=== PATIENT | male | born 1955 | race Caucasian/White ===

== ENCOUNTER 2022-03-23 10:38 | Emergency (ER) | payer MEDICARE, BC, SELFPAY ==
[2022-03-23] VITALS (12 sets, daily range): BP systolic 96–115; BP diastolic 60–71; PULSE 75–98; RESP 20; TEMP 36–36.6; O2SAT 93–98; BMI 25.0
--- NOTE | 2022-03-23 11:24 | CRLHL7_ITS ---
For Patients: As a result of the Cures Act, medical imaging exams and procedure reports are released immediately into your electronic medical record. You may view this report before your referring provider. If you have questions, please contact your health care provider. INDICATION: Fall TECHNIQUE: PA chest and left ribs. FINDINGS: The lungs are clear. There is no evidence of pulmonary contusion, pneumothorax or pleural effusion. The heart and pulmonary vessels are of normal size. Oblique detail views of the ribs demonstrate no evidence of fracture or intrinsic bone lesion. There is no evidence of pleural hematoma. IMPRESSION: Negative chest and left ribs. Dictated by Nichelle Choi MD @ 03/23/2022 12:14:22 PM (Electronically Signed)
--- NOTE | 2022-03-23 11:26 | CRLHL7_ITS ---
For Patients: As a result of the Century Cures Act, medical imaging exams and procedure reports are released immediately into your electronic medical record. You may view this report before your referring provider. If you have questions, please contact your health care provider. INDICATION: Fall, syncope TECHNIQUE: Noncontrast axial CT of the head. Coronal and sagittal reformats. Bone and soft tissue algorithms. COMPARISON: No relevant comparison studies available at this institution. FINDINGS: The ventricles and cortical sulci are slightly prominent. No midline shift or mass effect. No acute intracranial hemorrhage or extra-axial fluid collection. Small encephalomalacia defects are noted within the left posterior paramedian parieto-occipital lobes and left cerebellum. Jones-white matter differentiation is otherwise grossly maintained. Minimal periventricular white matter hypoattenuation. Intracranial vessels are unremarkable for technique. Midline structures are unremarkable. Bony calvarium appears grossly intact. Sequela of remote functional endoscopic sinus surgery, with moderate circumferential mucoperiosteal thickening throughout the paranasal sinuses, with opacified right sphenoid sinus, bubbly retained secretions in the left sphenoid sinus, and partially opacified right frontal sinus with large frontal air cell. Orbits are unremarkable. IMPRESSION: 1. No skull fracture or evidence of acute intracranial hemorrhage. 2. Small foci of encephalomalacia within the left posterior paramedian parieto-occipital lobes and left cerebellum. 3. Sinus surgery changes, with moderate diffuse paranasal sinus mucoperiosteal thickening as detailed. Please note that all CT scans at this facility use dose modulation, iterative reconstruction, and/or weight-based dosing when appropriate to reduce radiation dose to as low as reasonably achievable. Dictated by Haritha Coates MD @ 03/23/2022 12:17:03 PM (Electronically Signed)
[2022-03-23 11:50] LABS: Lactate* 1.1 mmol/L (0.5-1.9)
[2022-03-23 11:57] LABS: Basophils Percent Auto 0.1 % (0.0-3.0); Hematocrit 42.6 % (37.0-53.0); Hemoglobin* 14.4 gm/dL (13.5-17.5); Immature Granulocytes Pct Auto 0.2 %; Lymphocytes Percent Auto 3.6 % (20-44); Mean Corpuscular HGB Conc 34 gm/dL (32-36); Mean Corpuscular Hemoglobin 33 pg (26-34); Mean Corpuscular Volume 97 fL (80-100); Monocytes Percent Auto 8.8 % (0.0-11.0); Neutrophils Percent Auto 87.3 % (42.0-72.0); Platelet Count* 269 K/uL (140-440); RDW Coefficient of Variation % 11.8 % (11.5-15.5); Red Blood Count 4.39 m/uL (4.30-5.90); White Blood Count* 14.58 K/uL (4.50-11.00)
[2022-03-23] MEDS: 0.9 % SODIUM CHLORIDE 1000 ml 1,000 ML IV ×2 (12:03→12:30)
--- NOTE | 2022-03-23 12:06 | ED.GENADULT ---
HPI - General Adult General Chief complaint: Syncope/Fainted Stated complaint: Snycope Time Seen by Provider: 03/23/22 11:05 Source: patient and family Mode of arrival: ambulatory Limitations: no limitations History of Present Illness HPI narrative: 67 year male presenting to the ER today after being sent over from the Urgent Care for syncopal episode. Patient has been ill since Friday with fevers, chills, decreased appetite, achiness. Today he got up in the morning was walking around in all of a sudden found himself face down on the ground. Unclear of how long he was unconscious for. He was able to get up by himself. He denies any vomiting, confusion or neurologic deficits. He is not on any blood thinners. He does not vape or smoke. He was seen in the urgent care earlier today and tested negative for influenza. No other testing was done. He denies any chest pain or shortness of breath. He has been coughing. Cough is often productive of clear sputum. He denies any diarrhea. He is complaining of pain in the posterior ribcage on the left. Of note, patient states he does have a history of hematuria. Related Data Home Medications Medication Instructions Recorded Confirmed celecoxib 100 mg capsule 100 mg PO BID 03/23/22 03/23/22 Allergies Allergy/AdvReac Type Severity Reaction Status Date / Time Penicillins Allergy Intermediate Rash Verified 03/23/22 11:09 Review of Systems Status of ROS: Reports: 10 or more systems reviewed and unremarkable except as noted in History and below PFSH PFS Social History Smoking Status: Former smoker Do you use any of these nicotine containing products: None Second hand tobacco smoke exposure: No How often do you have a drink containing alcohol: 4 or more times a week How many standard drinks containing alcohol do you have on a typical day: 1 or 2 How often do you have six or more drinks on one occasion: Weekly AUDIT-C Alcohol total score: 7 Non-prescribed substance use: denies use service: No Exam Narrative: Exam Narrative: Well-nourished well-developed patient in no acute distress, does appear sick. He appears tired, he is warm and diaphoretic. Alert and oriented. Answers questions appropriately. Mood and affect are appropriate. Thoughts are goal oriented and rational. No tangential or magical thinking noted. Patient speaks in full sentences without needing to catch his breath. Speech is not slurred or pressured. HEENT: Normocephalic atraumatic. Pupils are equally round reactive to light. Extraocular muscles are intact. Conjunctivae are moist without any icterus noted. Moist mucous membranes. Posterior pharynx is normal. Neck is soft without any lymphadenopathy or thyromegaly. No masses are appreciated. Cardiovascular: Heart is regular rate and rhythm, heart sounds are a bit distant. Lungs: Clear to auscultation bilaterally no wheezes rhonchi or rales are appreciated. Patient takes deep breaths without any discomfort. I cannot reproduce his pain on palpation of the chest wall. His back is normal appearance, there is no bruising, swelling, or erythema noted. Abdomen: Soft and nontender nondistended with normal bowel sounds. No guarding or rebound. No masses or organomegaly appreciated. Extremities: Bilateral lower extremities are without edema. Normal DP and PT pulses. Skin: Well perfused without any obvious rashes. Back: He has no tenderness to palpation of the cervical, thoracic or lumbar spine. He has no tenderness with full range of motion at the neck. Const: Vital Signs, click to edit/add: Vital Signs - 24 hr 03/23/22 11:10 03/23/22 12:06 03/23/22 12:07 Temperature 96.8 F L Pulse Rate 84 84 Pulse Rate [Femora l] 98 Respiratory Rate 20 Blood Pressure 96/60 Blood Pressure [Le ft Upper Arm] 108/71 Pulse Oximetry 94 95 94 Oxygen Delivery Me thod Room Air 03/23/22 13:15 Temperature 97.9 F Pulse Rate Pulse Rate [Femora l] Respiratory Rate Blood Pressure Blood Pressure [Le ft Upper Arm] Pulse Oximetry Oxygen Delivery Me thod Course Course Hospital Course: CBC did show slightly elevated white cell count, in CRP slightly elevated, RSV positive. UA did show hematuria-again, patient states that this is not new for him. Chest x-ray did not show any evidence of pneumonia or rib fractures. Head CT did not show any evidence of intracranial hemorrhage. While he was here patient received 2 L of normal saline. Will pressured go as low as 96/60 however remained mostly in the low 100s reaching 115 systolic. Patient states he has never had high blood pressure in the past but is unsure of what his baseline blood pressures are. He did feel significantly better after IV fluids. We discussed RSV infection in older adults causing symptoms that he is experiencing. We also discussed the possibility of a bacterial infection causing his symptoms-blood cultures pending at this time. Given that his blood pressures were slightly on the low side we did discuss the possibility of admission, patient states that he feels comfortable going home at this time does not feel that he needs admission given that he is feeling so much better after IV fluids. He understands that he will return promptly if he starts to feel worse. is in agreement with this plan. We Will call them in the event that blood cultures are positive. Although blood pressures were slightly low, patient did not meet criteria for sepsis. Vital Signs Vital signs: Initial Vital Signs Temperature 96.8 F L 03/23/22 11:10 Temperature Source Temporal Artery Scan 03/23/22 11:10 Pulse Rate 98 03/23/22 11:10 Pulse Rhythm 03/23/22 11:10 Respiratory Rate 20 03/23/22 11:10 Blood Pressure 108/71 03/23/22 11:10 Blood Pressure Mean 83 03/23/22 11:10 Blood Pressure Position Supine 03/23/22 11:10 Pulse Oximetry 94 03/23/22 11:10 Oxygen Delivery Method 03/23/22 11:10 Vital Signs Temperature 96.8 F L 03/23/22 11:10 Pulse Rate 98 03/23/22 11:10 Respiratory Rate 20 03/23/22 11:10 Blood Pressure 108/71 03/23/22 11:10 Pulse Oximetry 94 03/23/22 11:10 Oxygen Delivery Method 03/23/22 11:10 Temperature 97.9 F 03/23/22 13:15 Pulse Rate 84 03/23/22 12:07 Respiratory Rate 20 03/23/22 11:10 Blood Pressure 96/60 03/23/22 12:06 Pulse Oximetry 94 03/23/22 12:07 Oxygen Delivery Method 03/23/22 11:10 Medical Decision Making MDM Narrative Medical decision making narrative: RSV infection. Plan per above. Lab Data Lab results reviewed: Yes I reviewed the patient's lab results Labs: Lab Results 03/23/22 03/23/22 03/23/22 Range/Units 11:40 11:40 11:40 WBC 14.58 H (4.50-11.00) K/uL RBC 4.39 (4.30-5.90) m/uL Hgb 14.4 (13.5-17.5) gm/dL Hct 42.6 (37.0-53.0) % MCV 97 (80-100) fL MCH 33 (26-34) pg MCHC 34 (32-36) gm/dL RDW Coeff of Leeann 11.8 (11.5-15.5) % Plt Count 269 (140-440) K/uL Neut % (Auto) 87.3 H (42.0-72.0) % Lymph % (Auto) 3.6 L (20-44) % [place] % (Auto) 8.8 (0.0-11.0) % Eos % (Auto) 0.0 (0.0-7.0) % Baso % (Auto) 0.1 (0.0-3.0) % Neut # (Auto) 12.70 H (1.7-7.0) K/uL Lymph # (Auto) 0.50 L (0.90-2.90) K/uL [place] # (Auto) 1.30 H (0.00-0.90) K/UL Eos # (Auto) 0.00 (0.00-0.50) K/uL Baso # (Auto) 0.00 (0.00-0.30) K/uL Abs Immat Gran (auto) 0.00 (0.00-0.30) K/uL Imm/Tot Granulo (auto) 0.2 % Sodium 131 L (135-149) mmol/L Potassium 4.4 (3.6-5.1) mmol/L Chloride 97 (96-114) mmol/L Carbon Dioxide 28 (20-32) mmol/L BUN 20 (7-30) mg/dL Creatinine 1.1 (0.5-1.5) mg/dL Estimated Creat Clear 57.19 Estimated GFR 73 ml/min Glucose 201 H (60-115) mg/dL Lactate 1.1 (0.5-1.9) mmol/L Calcium 9.3 (8.4-10.6) mg/dL Total Bilirubin 0.7 (0.1-1.5) mg/dL Direct Bilirubin 0.1 (0.0-0.5) mg/dL AST 26 (12-35) U/L ALT 19 (4-50) U/L Alkaline Phosphatase 62 (40-150) U/L Troponin I < 0.01 L (0.01-0.04) ng/mL C-Reactive Protein 4.5 H (0.5-1.0) mg/dL Total Protein 7.4 (6.0-8.3) g/dL Albumin 4.3 (3.3-5.0) g/dL Urine Color (Yellow) Urine Appearance (Clear) Urine pH (5.0-8.5) Ur Specific [place] (1.000-1.030) Urine Protein (Negative) Urine Glucose (UA) (Negative) Urine Ketones (Negative) Urine Blood (Negative) Urine Nitrite (Negative) Urine Bilirubin (Negative) Urine Urobilinogen (0.2-1.0) Ur Leukocyte Esterase (Negative) Urine RBC (0-2) Urine WBC (0-5) Ur Squamous Epith Cells (None-Few) Urine Bacteria (None) RBC Casts (None) SARS-CoV-2 (PCR) (Negative) Influenza Type A (PCR) (Negative) Influenza Type B (PCR) (Negative) 03/23/22 03/23/22 Range/Units 11:40 13:15 WBC (4.50-11.00) K/uL RBC (4.30-5.90) m/uL Hgb (13.5-17.5) gm/dL Hct (37.0-53.0) % MCV (80-100) fL MCH (26-34) pg MCHC (32-36) gm/dL RDW Coeff of Leeann (11.5-15.5) % Plt Count (140-440) K/uL Neut % (Auto) (42.0-72.0) % Lymph % (Auto) (20-44) % [place] % (Auto) (0.0-11.0) % Eos % (Auto) (0.0-7.0) % Baso % (Auto) (0.0-3.0) % Neut # (Auto) (1.7-7.0) K/uL Lymph # (Auto) (0.90-2.90) K/uL [place] # (Auto) (0.00-0.90) K/UL Eos # (Auto) (0.00-0.50) K/uL Baso # (Auto) (0.00-0.30) K/uL Abs Immat Gran (auto) (0.00-0.30) K/uL Imm/Tot Granulo (auto) % Sodium (135-149) mmol/L Potassium (3.6-5.1) mmol/L Chloride (96-114) mmol/L Carbon Dioxide (20-32) mmol/L BUN (7-30) mg/dL Creatinine (0.5-1.5) mg/dL Estimated Creat Clear Estimated GFR ml/min Glucose (60-115) mg/dL Lactate (0.5-1.9) mmol/L Calcium (8.4-10.6) mg/dL Total Bilirubin (0.1-1.5) mg/dL Direct Bilirubin (0.0-0.5) mg/dL AST (12-35) U/L ALT (4-50) U/L Alkaline Phosphatase (40-150) U/L Troponin I (0.01-0.04) ng/mL C-Reactive Protein (0.5-1.0) mg/dL Total Protein (6.0-8.3) g/dL Albumin (3.3-5.0) g/dL Urine Color Yellow (Yellow) Urine Appearance Clear (Clear) Urine pH 5.5 (5.0-8.5) Ur Specific [place] <= 1.005 (1.000-1.030) Urine Protein Negative (Negative) Urine Glucose (UA) Negative (Negative) Urine Ketones Negative (Negative) Urine Blood 3+ A (Negative) Urine Nitrite Negative (Negative) Urine Bilirubin Negative (Negative) Urine Urobilinogen 0.2 (0.2-1.0) Ur Leukocyte Esterase Negative (Negative) Urine RBC 5-10 A (0-2) Urine WBC 0-2 (0-5) Ur Squamous Epith Cells Few (None-Few) Urine Bacteria None (None) RBC Casts Moderate A (None) SARS-CoV-2 (PCR) Negative SARS-CoV-2 (Negative) Influenza Type A (PCR) Negative PCR FLU A (Negative) Influenza Type B (PCR) Negative PCR FLU B (Negative) Imaging Data CT scan - head: Attestation: I have reviewed the pertinent imaging results. Radiologist's impression: Noncontrast axial CT of the head. Coronal and sagittal reformats. Bone and soft tissue algorithms. COMPARISON: No relevant comparison studies available at this institution. FINDINGS: The ventricles and cortical sulci are slightly prominent. No midline shift or mass effect. No acute intracranial hemorrhage or extra-axial fluid collection. Small encephalomalacia defects are noted within the left posterior paramedian parieto-occipital lobes and left cerebellum. Jones-white matter differentiation is otherwise grossly maintained. Minimal periventricular white matter hypoattenuation. Intracranial vessels are unremarkable for technique. Midline structures are unremarkable. Bony calvarium appears grossly intact. Sequela of remote functional endoscopic sinus surgery, with moderate circumferential mucoperiosteal thickening throughout the paranasal sinuses, with opacified right sphenoid sinus, bubbly retained secretions in the left sphenoid sinus, and partially opacified right frontal sinus with large frontal air cell. Orbits are unremarkable. IMPRESSION: 1. No skull fracture or evidence of acute intracranial hemorrhage. 2. Small foci of encephalomalacia within the left posterior paramedian parieto-occipital lobes and left cerebellum. 3. Sinus surgery changes, with moderate diffuse paranasal sinus mucoperiosteal thickening as detailed. Chest x-ray: Attestation: I have reviewed the pertinent imaging results. Radiologist's impression: PA chest and left ribs. FINDINGS: The lungs are clear. There is no evidence of pulmonary contusion, pneumothorax or pleural effusion. The heart and pulmonary vessels are of normal size. Oblique detail views of the ribs demonstrate no evidence of fracture or intrinsic bone lesion. There is no evidence of pleural hematoma. IMPRESSION: Negative chest and left ribs. Discharge Plan Discharge Clinical Impression: Respiratory syncytial virus (RSV), Dehydration Patient Disposition: Home, Self-Care Condition: Improved Additional Instructions: Return to the ER right away if you start to feel worse instead of better. We will call you if we do have a positive blood cultures that will require further treatment. Of note, today there is no evidence of any rib injury or head injury noted on your scans. Prescriptions: No Action celecoxib 100 mg capsule 100 mg PO BID Follow Up/Referrals: Yany Pacheco DO [Primary Care Provider] - Stand Alone Forms: [facility] Info Instructions
[2022-03-23 12:09] LABS: Slide Review Reflex No
[2022-03-23 12:11] LABS: Albumin* 4.3 g/dL (3.3-5.0); Chloride* 97 mmol/L (96-114)
[2022-03-23 12:12] LABS: Potassium* 4.4 mmol/L (3.6-5.1); Sodium* 131 mmol/L (135-149)
[2022-03-23 12:14] LABS: Creatinine* 1.1 mg/dL (0.5-1.5); Est. Creatinine Clearance* 57.19; Estimated Glomerular Filt Rate 73 ml/min
[2022-03-23 12:15] LABS: Alanine Aminotransferase* 19 U/L (4-50); Alkaline Phosphatase* 62 U/L (40-150); Aspartate Amino Transferase* 26 U/L (12-35); Bilirubin Direct* 0.1 mg/dL (0.0-0.5); Bilirubin Total* 0.7 mg/dL (0.1-1.5); Blood Urea Nitrogen* 20 mg/dL (7-30); Calcium* 9.3 mg/dL (8.4-10.6); Carbon Dioxide* 28 mmol/L (20-32); Glucose* 201 mg/dL (60-115); Total Protein* 7.4 g/dL (6.0-8.3)
[2022-03-23 12:18] LABS: C Reactive Protein* 4.5 mg/dL (0.5-1.0)
[2022-03-23 12:29] LABS: Troponin I* < 0.01 ng/mL (0.01-0.04)
[2022-03-23 12:35] LABS: PCR FLU A Negative PCR FLU A (Negative); PCR FLU B Negative PCR FLU B (Negative)
[2022-03-23 12:54] LABS: SARS PCR* Negative SARS-CoV-2 (Negative)
[2022-03-23 13:31] LABS: Appearance Urine Clear (Clear); Bilirubin Urine Negative (Negative); Blood Urine 3+ (Negative); Color Urine Yellow (Yellow); Glucose Urine Negative (Negative); Ketones Urine Negative (Negative); Leukocyte Esterase Urine Negative (Negative); Nitrite Urine Negative (Negative); Protein Urine Negative (Negative); Specific Gravity Urine <= 1.005 (1.000-1.030); Urobilinogen Urine 0.2 (0.2-1.0); pH Urine 5.5 (5.0-8.5)
[2022-03-23 13:39] LABS: Squamous Epithelial Cell Urine Few (None-Few); WBC Urine 0-2 (0-5)
[2022-03-23 13:41] LABS: Red Blood Cell Casts Urine Moderate
[2022-03-23 14:11] LABS: PCR FLU A Negative PCR FLU A (Negative); PCR FLU B Negative PCR FLU B (Negative); PCR RSV POSITIVE PCR RSV (Negative); SARS PCR* Negative SARS-CoV-2 (Negative)
== END 2022-03-23 14:09 | disposition home or self-care (01) ==
PROVIDERS: Emergency Provider Family Medicine; PCP Family Medicine
DX: E86.0 Dehydration (principal); B97.4 Respiratory syncytial virus as the cause of diseases classified elsewhere
CPT/HCPCS: 36415; 70450; 71101; 80048; 80076; 81001; 83605; 84484; 85025; 86140; 87040; 87086; 87502; 87631; 87634; 87635; 93005; 94761; 99285; J7030

== ENCOUNTER 2023-05-01 09:45 | Outpatient (RCR) | payer MEDICARE, BC, SELFPAY | END 2023-07-25 17:09 | disposition home or self-care (01) | PROVIDERS: PCP Family Medicine; Visit Provider Family Medicine | DX: M75.101 Unspecified rotator cuff tear or rupture of right shoulder, not specified as traumatic (principal); M12.811 Other specific arthropathies, not elsewhere classified, right shoulder; M25.511 Pain in right shoulder; M62.81 Muscle weakness (generalized); M25.611 Stiffness of right shoulder, not elsewhere classified; Z51.89 Encounter for other specified aftercare | CPT/HCPCS: 97110; 97140; 97162 ==

== ENCOUNTER 2023-09-02 07:30 | Outpatient (RCR) | payer MEDICARE, BC, SELFPAY | END 2023-12-31 23:59 | disposition home or self-care (01) | PROVIDERS: PCP Family Medicine; Visit Provider Nurse Practitioner | DX: M54.2 Cervicalgia (principal); M54.50 Low back pain, unspecified; Z51.89 Encounter for other specified aftercare | CPT/HCPCS: 97110; 97140; 97162 ==

== ENCOUNTER 2024-05-03 08:17 | Day surgery (SDC) | payer MEDICARE, BC, SELFPAY ==
[2024-05-03] VITALS (20 sets, daily range): BP systolic 95–132; BP diastolic 54–90; PULSE 70–91; RESP 12–21; TEMP 36.1–36.6; O2SAT 91–96; BMI 24.1
--- NOTE | 2024-05-03 09:10 | SUR.PREOP ---
Dr. Granda here to see pt
[2024-05-03] MEDS: SODIUM CHLORIDE 0.9 % (FLUSH) 10 ML SYRINGE IVF (09:26)
[2024-05-03] MEDS: 0.9 % SODIUM CHLORIDE 500 ML 500 ML 100 ML IV ×2 (09:26→10:41)
[2024-05-03] MEDS: MIDAZOLAM HCL 1 MG/ML inj IVP (10:02)
[2024-05-03] MEDS: fentaNYL 100 MCG/2 ML inj IVP (10:02)
--- NOTE | 2024-05-03 10:04 | SUR.PREOP ---
TIME?OUT:?1001 PT/RN/MDA?VERIFICATION?OF?SURGICAL?SITE,?PROCEDURE,?AND?CONSENT OBTAINED?PRIOR?TO?INVASIVE?PROCEDURE. all in agreement
--- NOTE | 2024-05-03 10:07 | P.NB_ITS ---
Nerve Block Nerve Block Time Seen by Provider: 10:04 Date Seen: 05/03/24 Type of block requested by surgeon for post-operative analgesia: supraclavicular Side: right Time out performed: Yes Verification of patient name: Yes Verification of date of : Yes Site marking: site marked Name of person performing procedure: Zaid Continuous monitoring Was continuous monitoring of O2 sat, B/P, school lunch monitor, recorded every 15 minutes?: Yes Procedure Checklist: sterile prep, needles and gloves Ultrasound guided. Images saved: Yes Medications given in 5ml increments after negative aspiration: Ropivicaine %: 0.5 mL: 20 Needle gauge: 22 Precedex (mcg): 25 Patient tolerated procedure well: Yes Block Charges Block Charge (with Pro Fee): Brachial Plexus Use of Ultrasound Machine for Block: Yes- US Guidance/pain block
--- NOTE | 2024-05-03 10:07 | P.ANES_ITS ---
Anesthesia Charges Start Date/Time Anesthesia Start Date: 05/03/24 Anesthesia Start Time: 10:08 Stop Date/Time Anesthesia Stop Date: 05/03/24 Anesthesia Stop Time: 12:19 Summary Extremes of Age - Over 70 or under 1: MDA Coding CPT Codes CPT Codes: ANESTH SURGERY OF SHOULDER - 66102 ([id number]) P2 - PATIENT W/MILD SYST DISEASE, QK - BRIM WELT SEWING MACHINE OPERATOR 2-4 CNCRNT ANES PROC, QX - SPOOL SALVAGER SVC W/ MD MED DIRECTION Additional Codes: Summary - Extremes of Age - Over 70 or under 1: MDA ([id number])
--- NOTE | 2024-05-03 10:07 | W.ANESCHARGE ---
Anesthesia Charges Start Date/Time Anesthesia Start Date: 05/03/24 Anesthesia Start Time: 10:08 Stop Date/Time Anesthesia Stop Date: 05/03/24 Anesthesia Stop Time: 12:19 Summary Extremes of Age - Over 70 or under 1: MDA Coding CPT Codes CPT Codes: ANESTH SURGERY OF SHOULDER - 11912 ([id number]) P2 - PATIENT W/MILD SYST DISEASE, QK - STOCK CHECKERER 2-4 CNCRNT ANES PROC, QX - CAR CLERK PULLMAN SVC W/ MD MED DIRECTION Additional Codes: Summary - Extremes of Age - Over 70 or under 1: MDA ([id number])
--- NOTE | 2024-05-03 10:15 | W.PM.H&PU ---
History & Physical Update History & Physical Update H&P Reviewed and patient assessed: No changes noted
[2024-05-03] MEDS: CEFAZOLIN 2 GM in 0.9 % SODIUM CHLORIDE Mini-bag 100 ML IVPB (10:32)
[2024-05-03] MEDS: EPINEPHrine 1 MG in SODIUM CHLORIDE IRRIG SOLUTION 3,000 ML 9003 MG IRRIGATION ×3 (11:00→11:59)
--- NOTE | 2024-05-03 12:11 | PM.ORPRC ---
Procedure Note Date of procedure: 05/03/24 Procedure: PREOPERATIVE DIAGNOSES: 1. Right shoulder rotator cuff tear - full-thickness supraspinatus 2. Right shoulder AC degenerative joint disease, primary, moderate-severe 3. Right shoulder long head biceps partial-thickness tearing 4. Right shoulder anterior and superior labral tearing. 5. Right shoulder subacromial impingement syndrome. POSTOPERATIVE DIAGNOSES: 1. Right shoulder rotator cuff tear - full-thickness supraspinatus 2. Right shoulder AC degenerative joint disease, primary, moderate-severe 3. Right shoulder long head biceps partial-thickness tearing 4. Right shoulder anterior and superior labral tearing. 5. Right shoulder subacromial impingement syndrome. NAME OF OPERATION: 1. Right shoulder arthroscopic rotator cuff repair - upper border subscapularis, full-thickness supraspinatus primarily longitudinal split however with some posterior retraction warranting marginal convergence in addition to reapproximation to the greater tuberosity. 2. Right shoulder arthroscopic distal clavicle excision 3. Right shoulder arthroscopic extensive glenohumeral debridement 4. Right shoulder arthroscopic bursectomy, subacromial decompression/partial acromioplasty. SURGEON: Paul Pearson MD FIELD IRRIGATION WORKER: Logan Ugarte PA-C. Of note, a skilled inside sales assistant was critical for this case to aide in patient positioning, suture manipulation, arm positioning, instrument positioning, and closure. ANESTHESIA: General plus preoperative supraclavicular block. EBL: 25 mL IMPLANTS: Arthrex 4.75 mm BioComposite SwiveLock suture anchor (x1); Arthrex 5.5 mm BioComposite SwiveLock suture anchor (x1); Arthrex 5.5 mm BioComposite corkscrew suture anchor (x1) COMPLICATIONS: None evident INDICATIONS: The patient is a pleasant, 69-year-old male who has experienced right shoulder pain that has been increasing in recent time. Physical exam and imaging were consistent with a rotator cuff tear. Given their findings, as well as the weakness and pain, and inadequate response to nonoperative management, recommendation was made for surgery. FINDINGS: Exam under anesthesia revealed stable shoulder with excellent range of motion. The diagnostic arthroscopy revealed relatively healthy articular cartilage of the glenohumeral joint. The Subscapularis tendon was torn from its upper border with moderate retraction. The long head of the biceps tendon was torn in a high-grade partial-thickness manner near its origin. The superior rotator cuff tendon was found to be torn full-thickness through the mid supraspinatus from medial-lateral warranting marginal convergence sutures, but also had some tearing from the greater tuberosity warranting some baptism of the posterior retraction that had taken place. The labrum was degeneratively frayed in the anterior and superior aspects. No loose bodies were identified within the pouch or subscapularis recess. PROCEDURE: Following a thorough discussion of risks, benefits, and alternatives, consent was obtained and the right shoulder was marked. The patient was brought to the operating room and placed supine on the operating table. Induction of anesthesia was completed after preoperative supraclavicular block was administered in preop holding. Appropriate time out was performed identifying proper patient, site, and procedure. 2 g IV Ancef was administered within 1 hour of incision preoperatively. The right upper extremity was prepped and draped in the appropriate sterile fashion using ChloraPrep prep. This was after the patient was positioned in the beach chair with their head in neutral alignment and all bony prominences well padded. The shoulder was insufflated with 20mL of normal saline via an 18g spinal needle from a posterior approach. An 11 blade skin incision allowed a blunt trochar to be inserted and diagnostic arthroscopy to be performed with the findings as noted above. An anterior portal was established with an outside in technique. This allowed the probe to be inserted and confirm the diagnostic arthroscopic findings. The shaver was then inserted and allowed debridement of [the anterior and superior labrum, the long head of the biceps stump and tendon itself, and the deep surface of the supraspinatus and subscapularis rotator cuff tissue. Additionally, the long of the biceps was released from the bicipital tuberosity for arthroscopic tenotomy. The stump was debrided with a shaver as previously noted. Following this, the upper border subscapularis was repaired after debriding the lesser tuberosity with the shaver and [place] [address] cautery. Subscapularis was captured in horizontal mattress fashion with a fiber tape suture. The tails were brought to a single anchor in the lesser tuberosity with excellent reapproximation of the subscap tendon and good excursion/tension. Thereafter, the subacromial space was entered. Here, a complete bursectomy and partial acromioplasty/subacromial decompression was performed with a combination of radiofrequency ablator, the shaver, and a 5.5 mm bur. Additionally, distal clavicle excision was performed with the bur. 8 mm of distal clavicle was resected based on the with of our bur. Further inspection of the supraspinatus and infraspinatus rotator cuff was performed. This identified the tear as noted above. The margins of the tear were debrided, and the greater tuberosity was debrided with a combination of the apollo cautery, shaver, and bur on reverse setting.[ After gentle decortication, a single corkscrew suture anchor was placed in the greater tuberosity footprint. The double loaded sutures were passed independently to essentially achieve a margin convergence concept, but also allowed reapproximation to the footprint. 2 more SutureTape sutures were passed for the medial to complete the marginal convergence that extended near to the musculotendinous junction of the supraspinatus. 2 tails from the corkscrew anchor and 1 of the eyelet sutures was passed separately into the far lateral edge of the supraspinatus both anterior and posteriorly and allowed us to reapproximate the footprint with a lateral row anchor (5.5 mm BioComposite SwiveLock suture anchor). The rotator cuff showed excellent reapproximation of the greater tuberosity with good security upon probing. Prior to anchor concrete truck driver removal, the eyelet sutures were tugged on for each anchor and found that the anchor had excellent stability within the bone. The shoulder was placed through range of motion and found to be stable. The rotator cuff was re-probed and found to be stable. Instruments were removed. Excess fluid was drained, closure performed with 4-0 Monocryl and Steri-Strips. Dressings were applied. Sling was applied. The patient was awoken from anesthesia and transferred to the PACU in stable condition. A skilled inside sales assistant was critical for this case to aid in patient positioning, limb positioning, skill to manipulate arthroscopic instruments and camera, suture management, patient safety, and closure. PLAN: 1. Elbow, forearm, wrist and digit range of motion as tolerated. 2. Encouraged ice. 3. Oxycodone for pain as needed. 4. Sling at all times except for ROM and showering. 5. Follow up with PA visit in 1-2 weeks for wound check. Initiate physical therapy following that visit for passive range of motion. Initiate active assisted range of motion at 6 weeks. May do pendulums now.
--- NOTE | 2024-05-03 12:24 | P.ANES_ITS ---
Anesthesia Charges Start Date/Time Anesthesia Start Date: 05/03/24 Anesthesia Start Time: 10:08 Stop Date/Time Anesthesia Stop Date: 05/03/24 Anesthesia Stop Time: 12:19 Coding CPT Codes CPT Codes: ANESTH SURGERY OF SHOULDER - 49261 ([id number]) QK - ANODE ADJUSTER 2-4 CNCRNT ANES PROC, QX - BATHING SUIT MAKER SVC W/ MED DIRECTION
--- NOTE | 2024-05-03 12:24 | W.ANESCHARGE ---
Anesthesia Charges Start Date/Time Anesthesia Start Date: 05/03/24 Anesthesia Start Time: 10:08 Stop Date/Time Anesthesia Stop Date: 05/03/24 Anesthesia Stop Time: 12:19 Coding CPT Codes CPT Codes: ANESTH SURGERY OF SHOULDER - 05694 ([id number]) QK - ELECTRICAL LINEWORKER 2-4 CNCRNT ANES PROC, QX - AIRCRAFT ELECTRONICS TECHNICAL OFFICER SVC W/ MED DIRECTION
[2024-05-03] MEDS: ONDANSETRON 2 MG/ML inj 4 MG IVP (12:31)
[2024-05-03] MEDS: METOCLOPRAMIDE HCL 5 MG/ML INJ 10 MG IVP (12:50)
--- NOTE | 2024-05-03 13:07 | SUR.PHASEI ---
patient met discharge criteria per anesthesia
--- NOTE | 2024-05-03 15:04 | SUR.PHASEII ---
Pt tolerated bites of toast and jello and water. Denies pain in right shoulder. Reviewed d/c instruction extensively with patient and . All questions answered. Ice pack applied to right shoulder. sling on right arm. wheelchair out to car with .
== END 2024-05-03 14:55 | disposition home or self-care (01) ==
PROVIDERS: PCP Family Medicine; Visit Provider Orthopaedic Surgery Sports Medicine
PROC: (CPT 29805; principal; 2024-05-03 09:45)
DX: M75.121 Complete rotator cuff tear or rupture of right shoulder, not specified as traumatic (principal); M19.011 Primary osteoarthritis, right shoulder; S46.111A Strain of muscle, fascia and tendon of long head of biceps, right arm, initial encounter; S43.431A Superior glenoid labrum lesion of right shoulder, initial encounter; M75.41 Impingement syndrome of right shoulder; G89.18 Other acute postprocedural pain
CPT/HCPCS: 29824; 29823; 29826; 29827; 01630; 64415; 76942; 99100; C1713; J0171; J0330; J0690; J1100; J2250; J2371; J2405; J2704; J2710; J2765; J2795; J3010; J7030; L3670

== ENCOUNTER 2024-06-23 11:19 | Emergency (ER) | payer MEDICARE, BC, SELFPAY ==
[2024-06-23 11:31] VITALS: BP 123/75; PULSE 86; RESP 18; TEMP 37.1; O2SAT 96; BMI 23.2
--- NOTE | 2024-06-23 12:09 | ED.GENADULT ---
HPI - General Adult General Chief complaint: Unspecified Complaint, Adult Stated complaint: Loss of vision, MRI follow up Time Seen by Provider: 06/23/24 11:21 History of Present Illness HPI narrative: Patient is a 69 year white male without hypertension and no but diabetes who presents with vision loss couple days ago that resolved. He had no focal neurologic deficit. He has no symptoms at present. He had an MRI as he was seen by Dr. Casey at the [facility] in [place] the next day which was yesterday, and she called him today and said he needed to come to the ER. She told him he had some ?swelling in his veins?. The patient has no focal neurologic deficit he is awake alert he is moving all extremities had no weakness no word-finding inability. He has not had any stroke in the past. He has no history of hypertension or diabetes. He has had no recent health issues or illnesses other than right rotator cuff surgery within about the last 8 weeks. Related Data Home Medications ?Medication ?Instructions ?Recorded ?Confirmed diclofenac sodium 75 mg 75 mg PO BID 02/24/24 06/23/24 tablet,delayed release azithromycin 250 mg tablet mg DIRECTED 06/23/24 Allergies Allergy/AdvReac Type Severity Reaction Status Date / Time Penicillins Allergy Intermediate Rash Verified 06/23/24 13:37 Review of Systems Status of ROS: Reports: 6 or more systems reviewed and unremarkable except as noted in History and below [facility] Medical History Chronic sinusitis (06/26/09) ?J32.9 - Chronic sinusitis, unspecified (ICD-10) Shoulder pain, right ?M25.511 - Pain in right shoulder (ICD-10) Neck pain ?M54.2 - Cervicalgia (ICD-10) Surgical History History of arthroscopy of right shoulder (05/03/24) ?Z98.890 - Other specified postprocedural states (ICD-10) History of tonsillectomy (06/26/09) ?Z90.89 - Acquired absence of other organs (ICD-10) H/O sinus surgery (~2002) ?Z98.890 - Other specified postprocedural states (ICD-10) History of appendectomy ?Z90.49 - Acquired absence of other specified parts of digestive tract (ICD-10) H/O neck surgery ?Z98.890 - Other specified postprocedural states (ICD-10) Social History Smoking Status: Former smoker Do you use any of these nicotine containing products: None Second hand tobacco smoke exposure: No How often do you have a drink containing alcohol: never AUDIT-C Alcohol total score: 0 Non-prescribed substance use: denies use Caffeine: Yes (coffee) service: No Exam Narrative: Exam Narrative: Objective: Vital signs are within normal limits Patient is alert or x3, no facial asymmetry, no facial weakness noted Neck is supple Chest clear Heart rhythm regular heart murmur Abdomen benign soft Extremities show good strength in his hands and feet he has a little bit weak in his right shoulder due to his recent cuff surgery in this was not examined in gross detail. Const: Vital Signs, click to edit/add: Vital Signs - 24 hr 06/23/24 11:31 Temperature 98.7 F Pulse Rate [Pulse Oximeter] 86 Respiratory Rate 18 Blood Pressure [Ri ght Upper Arm] 123/75 Pulse Oximetry 96 Oxygen Delivery Me thod Room Air Course Vital Signs Vital signs: Initial Vital Signs Temperature 98.7 F 06/23/24 11:31 Temperature Source Temporal Artery Scan 06/23/24 11:31 Pulse Rate 86 06/23/24 11:31 Respiratory Rate 18 06/23/24 11:31 Blood Pressure 123/75 06/23/24 11:31 Blood Pressure Mean 91 06/23/24 11:31 Blood Pressure Position Sitting 06/23/24 11:31 Pulse Oximetry 96 06/23/24 11:31 Oxygen Delivery Method Room Air 06/23/24 11:31 Vital Signs Temperature 98.7 F 06/23/24 11:31 Pulse Rate 86 06/23/24 11:31 Respiratory Rate 18 06/23/24 11:31 Blood Pressure 123/75 06/23/24 11:31 Pulse Oximetry 96 06/23/24 11:31 Oxygen Delivery Method Room Air 06/23/24 11:31 Temperature 98.7 F 06/23/24 11:31 Pulse Rate 86 06/23/24 11:31 Respiratory Rate 18 06/23/24 11:31 Blood Pressure 123/75 06/23/24 11:31 Pulse Oximetry 96 06/23/24 11:31 Oxygen Delivery Method Room Air 06/23/24 11:31 Medications Administered Medications: Discontinued Medications Generic Name Dose Route Start Last Admin Trade Name Irish PRN Reason Stop Dose Admin Aspirin 324 mg 06/23/24 12:48 06/23/24 13:20 Aspirin 81 Mg Tab.Chew PO 06/23/24 12:49 324 mg ONCE ONE Administration Medical Decision Making MDM Narrative Medical decision making narrative: [age] white male with transient vision loss several days ago now with a MRI scan that was seen by primary care and then patient sent to the ER. At this point will try and obtain his MRI scan he is asymptomatic. Neurology consult as needed. Addendum 12:50 p.m. 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 Discussed with Dr. Ying fregoso who recommended that we studies vessels to make sure to have a critical carotid stenosis of will do a CTA of his head neck. Will calHer back with the results. If he does not have significant large vessel disease in simply aspirin daily be appropriate, Holter monitor, or ZIO patch, echo, and neurology follow-up as an outpatient would be reasonable. If he has large vessel disease then dual therapy with aspirin and Plavix 75 mg daily would be appropriate. This would be as well as the echo and follow-up as listed above Addendum 3:00 p.m. 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 Described, outpatient echo, full-dose aspirin daily. Return if problems or concerns. Stroke risk score is actually 1 Lab Data Labs: Lab Results 06/23/24 Range/Units 12:35 WBC 9.44 (4.50-11.00) K/uL RBC 4.10 L (4.30-5.90) m/uL Hgb 12.5 L (13.5-17.5) gm/dL Hct 37.6 (37.0-53.0) % MCV 92 (80-100) fL MCH 31 (26-34) pg MCHC 33 (32-36) gm/dL RDW Coeff of Leeann 12.6 (11.5-15.5) % Plt Count 385 (140-440) K/uL Neut % (Auto) 64.3 (42.0-72.0) % Lymph % (Auto) 19.7 L (20-44) % Charlton % (Auto) 12.0 H (0.0-11.0) % Eos % (Auto) 3.5 (0.0-7.0) % Baso % (Auto) 0.4 (0.0-3.0) % Neut # (Auto) 6.07 (1.7-7.0) K/uL Lymph # (Auto) 1.90 (0.90-2.90) K/uL Charlton # (Auto) 1.10 H (0.00-0.90) K/UL Eos # (Auto) 0.33 (0.00-0.50) K/uL Baso # (Auto) 0.04 (0.00-0.30) K/uL Abs Immat Gran (auto) 0.01 (0.00-0.30) K/uL Imm/Tot Granulo (auto) 0.1 % Sodium 138 (135-149) mmol/L Potassium 4.0 (3.6-5.1) mmol/L Chloride 102 (96-114) mmol/L Carbon Dioxide 27 (20-32) mmol/L Anion Gap 9 (7-15) mEq/L BUN 16 (7-30) mg/dL Creatinine 0.6 (0.5-1.5) mg/dL Estimated Creat Clear 61.14 Estimated GFR 103 ml/min Glucose 92 (60-115) mg/dL Calcium 9.1 (8.4-10.6) mg/dL C-Reactive Protein 5.0 H (0.5-1.0) mg/dL Discharge Plan Discharge Clinical Impression: Transient visual loss Patient Disposition: Home w/ Parent or Adult Condition: Stable Additional Instructions: Recheck with her primary care doctor within the next several days. Also would recommend you get an outpatient echocardiogram, and follow-up with neurology in the next 4-6 weeks. You are wearing a ZIO patch which is to detect any cardiac rhythm problems. Take a full 325 mg aspirin daily. As mention return if problems or concerns. Activity Level: Light activity Discharge Diet: Low Fat/Low Cholesterol Prescriptions: No Action diclofenac sodium 75 mg tablet,delayed release (DR/EC) 75 mg PO BID azithromycin 250 mg tablet DIRECTED Follow Up/Referrals: Yany Pacheco DO [Primary Care Provider] - Stand Alone Forms: [email or web address] Info Instructions
--- OUTSIDE RECORDS SUMMARY | 2024-06-23 12:16 | XMS_ITS | Clinical Summary ---
Author Organization [facility] Address [address] [place] [id number] Care Team Providers Care Entry Level Software Engineer Name Role Phone Unavailable Primary Care Provider Unavailabl e Source Comments Patient records contain information from all sites at [facility]. For routine questions regarding patient records, call [phone] during business hours, M-F 8:00 AM - 5:00 PM Central Time. Record requests for emergency care only can be directed to [phone] at any time.[facility] Allergies Active Allergy Reactions Criticality Noted Date Comments Amoxicillin-Pot Clavulanate Itching 06/28/2011 Penicillins Hives (Reselect Reaction),Itching 07/28/2012 Itching pt. States see notes to About itching with PCN Medications allopurinol (for_ZYLOPRIM) 300 mg tablet Take 1 tablet by mouth daily. 7 Active fluticasone propionate (FLONASE) 50 mcg/actuation nasal spray Administer 2 sprays into each nostril daily. 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 Gender Identity Not on file Sexual Orientation Not on file Last Filed Vital Signs Vital Sign Reading Time Taken Comments Blood Pressure 125/74 07/17/2023 1:04 PM CDT Pulse 82 07/17/2023 1:04 PM CDT Temperature 36.5 C (97.7 F) 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 Respiratory Rate 20 07/25/2015 1:15 PM CDT Oxygen Saturation - - Inhaled Oxygen Concentration - - Weight 68.2 kg (150 lb 5.7 oz) 07/17/2023 1:04 PM CDT Height 167.8 cm (5' 6.06) 07/17/2023 1:04 PM CD T Body Mass Index 24.22 07/17/2023 1:04 PM CDT Plan of Treatment Health Maintenance Due Date Last Done Comments CT Colonography 1955 Cologuard 1955 Colonoscopy 1955 Colorectal Cancer Screening 1955 FIT 1955 Hepatitis B Screening 1955 Hepatitis C Screening 1955 Zoster Vaccines (2 of 3) 05/07/2015 03/12/2015 DTaP,Tdap,and Td Vaccines (2 - Td or Tdap) 02/26/2019 02/26/2009 COVID-19 Vaccine (4 - season) 2023 03/19/2021, 07/16/2020, 06/25/2020 Influenza Vaccine (#1) 2024 , 01/04/2019, 02/25/2018, Additional history exists Depression Screening (Annual PHQ-2) 04/21/2024 Fall Risk Screen (Annual) 04/21/2024 Fasting Glucose for Diabetes Screening 11/22/2025 11/22/2022, 01/26/2020, 04/10/2018, Additional history exists Pneumococcal vaccine (50+ years) Completed 11/22/2022, 01/28/2020 IPV Vaccines Aged Out No longer eligi ble based on patient's age to complete this topic Procedures Procedure Name Priority Date/Time Associated Diagnosis Comments BASIC METABOLIC PANEL, S/P Routine 07/25/2015 1:45 PM CDT from Last 3 Months or Most Recently Relevant to Health Maintenance Results * (ABNORMAL) BMP (Basic Metabolic Panel) (07/25/2015 1:45 PM CDT) Sodium, S 141 135 - 145 MMOLL POWERCHART Potassium, S 5.2 3.6 - 5.2 MMOLL POWERCHART Chloride, S 103 98 - 107 MMOLL POWERCHART CO2 Total 32(H) 22 - 29 MMOLL POWERCHART BUN (Blood Urea Nitrogen), S 22 8 - 24 MGDL POWERCHART Creatinine 1.0 0.8 - 1.3 MGDL POWERCHART Calcium, Total, S 9.8 8.8 - 10.3 MGDL POWERCHART Anion Gap 6(L) 7 - 15 MMOLL POWERCHART HXeGFR (MDRD) >60 >=60 [id number] POWERCHART eGFR Black/ >60 >=60 [id number] POWERCHART Glucose 94 70 - 139 MGDL POWERCHART Blood 07/25/2015 1:45 PM CDT Luz Muhammad APRN, C.N.P., R.N. LAB BLOOD ADD- ON Final Result POWERCHART from Last 3 Months or Most Recently Relevant to Health Maintenance [place] [address] MEDICARE [facility]
[2024-06-23 12:39] LABS: Basophils Absolute Auto 0.04 K/uL (0.00-0.30); Basophils Percent Auto 0.4 % (0.0-3.0); Eosinophils Absolute Auto 0.33 K/uL (0.00-0.50); Eosinophils Percent Auto 3.5 % (0.0-7.0); Hematocrit 37.6 % (37.0-53.0); Hemoglobin* 12.5 gm/dL (13.5-17.5); Immature Granulocytes Abs Auto 0.01 K/uL (0.00-0.30); Immature Granulocytes Pct Auto 0.1 %; Lymphocytes Percent Auto 19.7 % (20-44); Mean Corpuscular HGB Conc 33 gm/dL (32-36); Mean Corpuscular Hemoglobin 31 pg (26-34); Mean Corpuscular Volume 92 fL (80-100); Neutrophils Absolute Auto 6.07 K/uL (1.7-7.0); Neutrophils Percent Auto 64.3 % (42.0-72.0); Platelet Count* 385 K/uL (140-440); RDW Coefficient of Variation % 12.6 % (11.5-15.5); White Blood Count* 9.44 K/uL (4.50-11.00)
[2024-06-23 12:41] LABS: Slide Review Reflex No
--- NOTE | 2024-06-23 12:47 | CRLHL7_ITS ---
For Patients: As a result of the Century Cures Act, medical imaging exams and procedure reports are released immediately into your electronic medical record. You may view this report before your referring provider. If you have questions, please contact your health care provider. CLINICAL HISTORY: Vision loss. TECHNIQUE: Standard helical CT image acquisition through the neck was performed after intravenous contrast bolus enhancement. 3D and MIP reconstructions were performed at a separate workstation and permanently archived. COMPARISON: None available. FINDINGS: The origins of the great vessels from the aortic arch are patent. The common carotid arteries are patent. No significant luminal stenoses of the proximal ICAs by NASCET criteria. The more distal cervical segments of the ICAs are patent. The origins and cervical segments of the vertebral arteries are patent. IMPRESSION: Patent cervical arterial vasculature without hemodynamically significant luminal stenosis. Please note that all CT scans at this facility use dose modulation, iterative reconstruction, and/or weight-based dosing when appropriate to reduce radiation dose to as low as reasonably achievable. Dictated by Sebastian Ureña MD @ 06/24/2024 8:23:43 AM (Electronically Signed)
--- NOTE | 2024-06-23 12:47 | CRLHL7_ITS ---
For Patients: As a result of the Century Cures Act, medical imaging exams and procedure reports are released immediately into your electronic medical record. You may view this report before your referring provider. If you have questions, please contact your health care provider. CLINICAL HISTORY: Vision loss. TECHNIQUE: Standard helical CT image acquisition through the head following the administration of intravenous contrast was performed. 3D and MIP reconstructions were performed at a separate workstation and permanently archived. COMPARISON: None available. FINDINGS: No intracranial proximal large vessel occlusion or flow-limiting luminal stenosis. No evidence of cerebral aneurysm. No findings to suggest an arterial-venous shunting lesion. The major dural venous sinuses and deep venous system are patent. IMPRESSION: No intracranial proximal large vessel occlusion, flow-limiting luminal stenosis, or cerebral aneurysm. Please note that all CT scans at this facility use dose modulation, iterative reconstruction, and/or weight-based dosing when appropriate to reduce radiation dose to as low as reasonably achievable. Dictated by Sebastian Ureña MD @ 06/24/2024 8:26:35 AM (Electronically Signed)
[2024-06-23 12:59] LABS: Chloride* 102 mmol/L (96-114)
[2024-06-23 13:00] LABS: Sodium* 138 mmol/L (135-149)
[2024-06-23 13:02] LABS: Blood Urea Nitrogen* 16 mg/dL (7-30); Creatinine* 0.6 mg/dL (0.5-1.5); Est. Creatinine Clearance* 61.14; Estimated Glomerular Filt Rate 103 ml/min
[2024-06-23 13:03] LABS: Anion Gap 9 mEq/L (7-15); Calcium* 9.1 mg/dL (8.4-10.6); Carbon Dioxide* 27 mmol/L (20-32); Glucose* 92 mg/dL (60-115)
[2024-06-23] MEDS: ASPIRIN 81 MG TAB.CHEW 324 MG PO (13:20)
== END 2024-06-23 15:00 | disposition home or self-care (01) ==
PROVIDERS: Emergency Provider Family Medicine; PCP Family Medicine
DX: H53.122 Transient visual loss, left eye (principal)
CPT/HCPCS: 36415; 70496; 70498; 80048; 85025; 86140; 93005; 93246; 99285; A9270; Q9967

== ENCOUNTER 2024-06-25 10:06 | Day surgery (SDC) | payer MEDICARE, BC, SELFPAY ==
[2024-06-25] VITALS (17 sets, daily range): BP systolic 121–162; BP diastolic 63–97; PULSE 69–82; RESP 15–16; TEMP 36.4; O2SAT 96–99; BMI 24.2
[2024-06-25] MEDS: 0.9 % SODIUM CHLORIDE 500 ML 500 ML 100 ML IV (10:15)
[2024-06-25] MEDS: SODIUM CHLORIDE 0.9 % (FLUSH) 10 ML SYRINGE IVF (10:39)
--- NOTE | 2024-06-25 10:44 | PM.GSCN ---
History of Present Illness Consult details Date Seen: 06/25/24 Consult date: 06/25/24 Narrative: Patient has had 1 months of left-sided headaches and some vision changes. At times he feels a ?sharp sensation, like he is being stabbed by a needle? on the left side of his head. He will also have some darkening and blurriness in his left eye. This lasts about 5-10 minutes before it subsides. It has occurred about 3 times. Workup has included ESR, which was elevated at 58, CRP elevated at 5. 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 He was evaluated by Neurology, who did not feel any further workup was needed regarding this. Patient does have a personal history of PMR. He is on full-dose aspirin daily, no other anticoagulation. No history of diabetes. Given new onset headaches and vision changes, as well as elevation in inflammatory markers his primary care provider is requesting a temporal artery biopsy to rule out giant cell arteritis. Review of Systems Status of ROS: Reports: 10 or more systems reviewed and unremarkable except as noted in History and below [facility] Medical History Chronic sinusitis (06/26/09) ?J32.9 - Chronic sinusitis, unspecified (ICD-10) Shoulder pain, right ?M25.511 - Pain in right shoulder (ICD-10) Neck pain ?M54.2 - Cervicalgia (ICD-10) Surgical History History of arthroscopy of right shoulder (05/03/24) ?Z98.890 - Other specified postprocedural states (ICD-10) History of tonsillectomy (06/26/09) ?Z90.89 - Acquired absence of other organs (ICD-10) H/O sinus surgery (~2002) ?Z98.890 - Other specified postprocedural states (ICD-10) History of appendectomy ?Z90.49 - Acquired absence of other specified parts of digestive tract (ICD-10) H/O neck surgery ?Z98.890 - Other specified postprocedural states (ICD-10) Social History Smoking Status: Former smoker Do you use any of these nicotine containing products: None Second hand tobacco smoke exposure: No How often do you have a drink containing alcohol: never AUDIT-C Alcohol total score: 0 Non-prescribed substance use: denies use Caffeine: Yes (coffee) service: No Meds Home Medications and Allergies Home Medications ?Medication ?Instructions ?Recorded ?Confirmed ?Type diclofenac sodium 75 mg 75 mg PO BID 02/24/24 06/23/24 History tablet,delayed release azithromycin 250 mg tablet mg DIRECTED 06/23/24 History Allergies Allergy/AdvReac Type Severity Reaction Status Date / Time Penicillins Allergy Intermediate Rash Verified 06/23/24 13:37 Exam Narrative: Exam Narrative: General: Alert and oriented, no acute distress Respiratory: Equal breath rise bilaterally, maintained on room air CV: Well perfused HEENT: Some mild temporal tenderness on the left, temporal artery is palpable. Const: Vital Signs, click to edit/add: Vital Signs - 24 hr 06/25/24 10:37 Temperature 97.6 F Pulse Rate 76 Respiratory Rate 16 Blood Pressure 130/67 Pulse Oximetry 99 Oxygen Delivery Me thod Room Air Results Labs Labs: All other labs normal. 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 Primary care provider has started him on high-dose steroids and requested a temporal artery biopsy. Will plan for a left-sided biopsy, given that this is the symptomatic side. Risks and benefits of the procedure were discussed at length with the patient. Risks included, but were not limited to: Bleeding, infection, risk of damage to surrounding structures and risk of dehiscence to the wound. Will plan to perform this under local anesthetic. Will have patient continue to take his steroids as instructed and plan to call him with the pathology results next week. All questions and concerns were addressed with patient agreeing to proceed.
[2024-06-25] MEDS: BUPIVACAINE 0.25% 30 ML INJECTION (12:15)
[2024-06-25] MEDS: LIDOCAINE 1% MDV 20 ML INJECTION (12:15)
--- NOTE | 2024-06-25 12:49 | PM.GSPRC ---
Operative Note Date of procedure: 06/25/24 Pre-op diagnosis: Giant cell arteritis Post-op diagnosis: Same Type of Procedure: Temporal artery biopsy, left Indications: Patient is a 69-year-old male with new onset headaches and transient vision changes. I was asked by his primary to consider him for biopsy of the temporal artery to rule out giant cell arteritis. Risks and benefits of operative intervention were discussed at length with the patient. Risks included but was not limited to: Bleeding, infection, risk of damage to surrounding structures, possible need for additional procedures and risk of inadequate sampling. Procedure Description: After discussing the risks and benefits of the procedure, the patient signed informed consent.? The operative site was marked and the patient was brought to the operating room and placed on the operating table in supine position.? Care was taken to pad the patient's pressure points.?? Attention was directed to the left side. The handheld Doppler was utilized to ayse out the course of the temporal artery. Local anesthetic was utilized to numb up the area. A 15 blade was used to make an approximate 5 cm incision. Cautery was then used to divide the subcutaneous tissue and assure hemostasis. The artery was very small and difficult to visualize. It required a significant amount of dissection for identification. Constriction of the artery was also evident due to its manipulation. Once it was visualized a proximal portion of the artery was dissected out and ligated with 3 0 Vicryl. The dissection was then carried distally for approximately 2 cm and ligated. The specimen was then carefully removed, trying to limit manipulation of the vessel itself, and passed off to the back table. Again hemostasis was assured and the incision closed with interrupted 3 0 Vicryl and running 4 Monocryl. Sterile dressings were then applied. Findings: Left temporal artery, small caliber and difficult to identify. Anesthesia: local Surgeon: Nanda Mckeon MD Estimated blood loss (mL): 5 Additional Specimen Information: Left temporal artery Condition: stable Disposition: same day
== END 2024-06-25 12:44 | disposition home or self-care (01) ==
PROVIDERS: PCP Family Medicine; Visit Provider Surgery
PROC: (CPT 37609; principal; 2024-06-25 11:30)
DX: M31.6 Other giant cell arteritis (principal); H53.8 Other visual disturbances; R51.9 Headache, unspecified
CPT/HCPCS: 37609; 76998; 88305; J2003; J0665; J7030

== ENCOUNTER 2024-08-06 11:15 | Outpatient (RCR) | payer MEDICARE, BC, SELFPAY ==
--- NOTE | 2024-05-18 09:06 | PT.OPEX ---
[facility] PT [facility] Outpatient Eval Start: 05/17/24 12:43 Freq: Status: Active Protocol: Document 05/17/24 12:43 XAVI (Rec: 05/17/24 15:40 XAVI [id number]) E-signed By Sarai Quiles PT Physical Therapy Outpatient Evaluation Insurance Information Recert Due Date 08/14/24 Insurance Name Medicare B Medical Diagnosis S/P RCR/DCE/SAD/BICEPS TENOTOMY 05/03/24 RIGHT SUPRASPINATUS TEAR RIGHT AC DEGENERATION RIGHT LONG HEAD BICEPS PARTIAL THICKNESS TEARING RIGHT ANTERIOR AND SUPERIOR LABRAL TARING ' RIGHT SHOULDER SUBACROMIAL IMPINGEMENT SYNDROME Treating Diagnosis RIGHT SHOULDER PAIN RIGHT SHOULDER STIFFNESS RIGHT SHOULDER WEAKNESS Imaging Report Information MRI OUTSIDE RECORDS 01/30/2023 Infraspinatus tendinosis with low-grade interstitial tearing . Subscapularis tendinosis with low-grade interstitial tearing near the insertion. No high-grade partial or full- thickness tearing. Moderate AC joint arthrosis. 8 x 12 x 12 mm cyst within the lesser tuberosity region of the humeral head. Appears benign. Mild long head of the biceps tendinosis and tenosynovitis. Referring MD ALBA Subjective Preferred Name TERRENCE Villanueva PATIENT HAS A >1 YR H/O SHOULDER PAIN AND DYSFUNCTION. HE HAS FAILED CONSERVATIVE TREATMENT CONSISTING OF REST, ICE, PO MEDS, AND PHYSICAL THERAPY. HE ARRIVES TODAY W/O SLING STATING, I THOUGHT I DIDN'T NEED IT FOR THERAPY AND LEFT IT IN THE CAR. HE HAS NOT BEE WEARING SLING INSTRUCTED BUT HAS BEEN PERFORMING HIS PENDULUM AND ELBOW/WRIST/HAND AROM. HE HAS FAIR SYMPTOM MGMT BY WAY OF PO TYLENOL ARTHRITIS AND ICE INTERMITTENTLY. HE IS SLEEPING UPRIGHT ON A SOFT COUCH WITH HIS SLING. Pain Comments -07/29 Date of Last Physician Visit 05/11/24 Date of Next Physician Visit 06/18/24 Date of Surgery (If applicable) 05/03/24 Current Work Status Retired Occupation [employer] Precautions Treatment Precautions/Contraindications PMHX: PMR?, CERVICAL LAMINECTOMY Weight Bearing Status Non-Weight Bearing Therapy Limitations/Systems Review Not Limited Objective Other/Pertinent Objective 05/17/24: SUPINE PROM 82/78/22 @45 SCAPTION /32@45 SCAPTION; INCISION IS PRISTINE AND ABSENT OF S/S OF INFECTION, MOD EDEMA, MOD TISSUE IRRITABILITY Functional Test Performed & Score [id number] Assessment Assessment/Impression PATIENT IS A 69YO [address]FERR[address]. SHELLY WILLIS TO EVAL AND TREAT S/P RIGHT RCR, SAD,DCE, BICEPS TENOTOMY. PATIENT DEMONSTRATES SIGNS AND SYMPTOMS CONSISTENT WITH ABOVE MENTION INTERVENTION CONTRIBUTING TO THEIR FUNCTIONAL IMPAIRMENTS OF NO USE OF RUE, LIFTING, CARRYING, REACHING, ADL'S . PATIENT HAS NOTABLE OBJECTIVE FINDING INCLUDING PAIN, DECREAED ROM, STRENGTH, AND FUNCTIONAL USE WHICH ALL ARE CONTRIBUTING TO THE CLINICAL IMPRESSION. PATIENT IS A GOOD CANDIDATE FOR SKILLED PHYSICAL THERAPY TO ADDRESS AFOREMENTIONED DEFICITS ABOVE IN ORDER TO RETURN TO ASYMPTOMATIC STATUS AND RETURN TO UNRESTRICTED MVMTS. INTERVENTION IS NECESSARY BY WAY OF THERAPEUTIC EXERCISES, MANUAL THERAPY, NEUROMUSCULAR EDUCATION, AND STABILIZATION/ PROPRIOCEPTION. PLEASE REFER TO APPROPRIATE SECTION WITHIN THIS EVALUATION FOR COMPLETE LIST OF GOALS AND PLAN OF CARE . DISCHARGE PLAN AND CRITERIA IS FOR PATIENT TO ACHIEVE THE GOALS LISTED BELOW OR UNTIL MAX POTENTIAL MET. PATIENT VERBALIZED UNDERSTANDING AND AGREEABLE TO POC, FREQ, AND GOALS ESTABLISHED. Primary Functional Limitations USE OF RIGHT UE LIFTING CARRYING REACHING Plan of Care Rehabilitation Potential Good Physical Therapy Goals 1. DECREASE PAIN TO </3/10 WITH DAILY ACTIVITIES AND WITH PROGRESSION OF PHYSICAL THERAPY OVER THE NEXT 6-8 WEEKS. 2. IMPROVE R SHOULDER PROM TO WFL WITHIN 4-6 WEEKS TO PREPARE FOR RETURN TO FUNCTIONAL USE. 3. IMPROVE AROM TO WFL TO RETURN TO FUNCTIONAL USE OF RIGHT SHOULDER FOR DAILY ACTIVITIES/WORK/RECREATIONAL ACTIVITIES IN THE NEXT 8-10 WEEKS. 4. IMPROVE R SHOULDER STRENGTH TO WFL IN THE NEXT 10 -12 WEEKS FOR RETURN TO FULL FUNCTIONAL USE OF RIGHT SHOULDER/UE FOR DAILY ACTIVITIES/ WORK/RECREATIONAL ACTIVITIES. 5. PATIENT WILL DEMONSTRATE INDEPENDENCE WITH HIS HEP WITHIN 12-16 WEEKS FOR PROGRESSION OF THE ABOVE GOALS , ONGOING SELF MGMT OF ANY SYMPTOMS, ONGOING PROGRESS/ IMPROVEMENTS IN ROM/STRENGTH/ FUNCTION FOR RETURN TO FULL FUNCTIONAL USE OF RUE Coordination/Communication With Referral Source Treatment Plan/Direct Interventions Ice/Cold/Vasopneumatic,Joint Mobilization,Manual Therapy, Neuromuscular Re-ed,Orthotics/ Braces,Self-Care/Home Management,Therapeutic Activities,Therapeutic Exercises Frequency/Duration 1-2X/WK Patient Will Be Discharged From Therapy Completion of LTG(s), Independently Progressing Evaluation Billing Untimed Code Treatment Minutes 20 PT Eval No Charge No Complexity Low Certification Information Initial Certification Date 05/17/24 Ending Certification Date 08/14/24 Provider Signature Required Yes Provider Signature Shows Agreement With POC & Medical Necessity Physician NPI Number Write NPI# Here Physician Comment/Change : Physician Signature & Date Requested Please Sign/Date Here
== END 2024-12-04 23:59 | disposition home or self-care (01) ==
PROVIDERS: PCP Family Medicine; Visit Provider Orthopaedic Surgery Sports Medicine
DX: Z48.89 Encounter for other specified surgical aftercare (principal); M75.101 Unspecified rotator cuff tear or rupture of right shoulder, not specified as traumatic; M75.41 Impingement syndrome of right shoulder; Z51.89 Encounter for other specified aftercare
CPT/HCPCS: 97110; 97140; 97161; 97535

== ENCOUNTER 2024-08-30 12:53 | Outpatient (CLI) | payer MEDICARE, BC, SELFPAY | END 2024-08-30 12:54 | disposition home or self-care (01) | LOC: RAD 12:55 | PROVIDERS: PCP Family Medicine; Visit Provider Psychiatry & Neurology Neurology | DX: I63.9 Cerebral infarction, unspecified (principal); I07.1 Rheumatic tricuspid insufficiency | CPT/HCPCS: 93306 ==